=== PATIENT | male | born 1980 | race Two or more races ===

== ENCOUNTER 2025-05-19 01:23 | Emergency (ER) | payer OTHER ==
[~2025-05-19] VITALS: Ht 165.1 cm; Wt 78.0 kg
[2025-05-19] MEDS ORDERED: KETOROLAC TROMETHAMINE 60 MG VIAL IM STA (01:35)
[2025-05-19 01:58] VITALS: BP 110/78; O2SAT 98
[2025-05-19] MEDS ORDERED: LIPITOR40 MG PO (01:59)
[2025-05-19] MEDS ORDERED: SINGULAIR4 M1 PO (01:59)
[2025-05-19] MEDS ORDERED: IRBESARTAN150 MG PO (01:59)
[2025-05-19 02:29] LABS: BASO % 0.5 % (0.1-1.2); EOS # 0.23 (0.04-0.54); EOS % 2.1 % (0.7-7.0); LYMPH # 3.22 (1.18-3.74); LYMPH % 29.1 % (19.3-53.1); MEAN PLATELET VOLUME 11.50 fl (9.4-12.4); MONO # 1.08 (0.24-0.82); MONO % 9.8 % (4.7-12.5); NEUT # 6.44 (1.56-6.13); NEUT % 58.2 % (34.0-71.1); RED CELL DISTRIBUTION WIDTH 12.9 % (11.6-14.4)
[2025-05-19 03:08] LABS: BUN CREA RATIO 8.0 (7.0-25.0); CREATININE SERUM 1.04 mg/dL (0.70-1.30); GFR 77.23; GLUCOSE FASTING 101.0 mg/dL (65-100); OSMOLALITY SERUM 283.0 MOSM/KG (275-295)
[2025-05-19] MEDS ORDERED: MELOXICAM15 MG PO (05:27)
== END 2025-05-19 05:41 ==
LOC: ER 01:23
PROVIDERS: General Practice
DX: S29.8XXA Other specified injuries of thorax, initial encounter (principal); W17.89XA Other fall from one level to another, initial encounter; Y93.89 Activity, other specified; Y92.018 Other place in single-family (private) house as the place of occurrence of the external cause; S39.81XA Other specified injuries of abdomen, initial encounter; S79.819A Other specified injuries of unspecified hip, initial encounter; S79.822A Other specified injuries of left thigh, initial encounter
CPT/HCPCS: 36415; 71110; 72170; 73551; 74177; 96372; 99284; J1885; Q9965